=== PATIENT | female | born 1955 | race Caucasian/White ===

== ENCOUNTER 2018-10-15 15:21 | Emergency (ER) | payer MEDICARE ==
[~2018-10-15 15:21] MED LIST: AMITRIPTYLINE H10 M1 PO; AMITRIPTYLINE H75 M1 PO; AMITRIPTYLINE75 MG PO; APRESOLINE 220 MG/ML IV; ASPIRIN 32325 MG/TA1 PO; ASPIRIN 32325 MG/TAB PO; ASPIRIN 81M81 MG/TA2 PO; BACTRIM DS 8001 TAB PO; CATAPRES-TTS 30.3 MG TOP; CELEXA40 MG PO; CIPRO 500MG TA500 MG PO; COLACE 100100 MG/CAP PO; COUMADIN 5MG5 MG/TAB PO; COUMADIN 6MG6 MG/TAB PO; COUMADIN 77.5 MG/TAB PO; COUMADIN4 MG PO; KEPPRA SUSP100 MG/ML PEG; LEVEMIR100 U/ML SQ; LIPITOR20 MG PEG; LIPITOR20 MG PO; LODINE300 MG PO; LOVENOX 4040 MG/0.4 SQ; MIRALAX PA17 GM/Dose PO; NITRO-BID22 TOP; NORCO 325 MG-51 TAB; NORCO 325 MG-51 TAB PO; NORCO 325 MG-7.1 TAB PO; NORVASC 10MG10 MG PO; NOVOLOG 100U100 U/M1; NOVOLOG 100U100 U/M1 SC; NOVOLOG 100U100 U/M1 SQ; NS INT FLUSH 1010 ML IV; PEPCID 20MG TAB20 MG PEG; PHENERGAN25 MG/ML IV; PRINIVIL5 MG PO; SENNA-S 50 MG-81 TAB PO; TYLENOL 500MG500 MG PO; TYLENOL ELIX32 MG/M2 PEG; ULTRAM 50MG TAB50 MG; ULTRAM 50MG TAB50 MG PO; ZOFRAN INJ4 MG/2 ML IV; ZOLOFT 100MG100 MG; ZYPREXA 5MG5 MG PEG; [UNRECOGNIZED DRUG - CODE] IV
[2018-10-15 15:24] VITALS: TEMP 98.2
[2018-10-15 16:19] LABS: BASO # 0.1 (0.0-0.2); BASO % 0.6 % (0.0-2.0); EOS # 0.2 (0.0-0.7); EOS % 1.9 % (0-4.0); GRAN # 5.8 (1.4-6.5); GRAN % 59.9 % (42.2-75.2); HEMATOCRIT 38.1 % (37.0-47.0); LYMPH % 30.9 % (20.0-51.0); MEAN CELL VOLUME 82 fl (80.0-100.0); MEAN CORPUSCULAR HEMOGLOBIN 28 pg (27.0-31.0); MEAN CORPUSCULAR HGB CONC 34 g/dl (33.0-37.0); MEAN PLATELET VOLUME 9.3 fl (7.4-10.4); MONO # 0.6 (0.1-0.6); MONO % 6.4 % (1.7-9.3); PLATELET COUNT 244 K/mm3 (130-400); RED BLOOD COUNT 4.64 M/mm3 (4.10-5.30); REDCELL DISTRIBUTION WIDTH-CV 13.1 % (11.5-14.5)
[2018-10-15 16:23] LABS: INR 2.6 (0.8-3.0); PROTHROMBIN TIME 29.8 SECONDS (9.7-12.8)
[2018-10-15 16:28] LABS: CREATININE, serum 0.88 mg/dL (0.52-1.25); POTASSIUM 3.2 mmol/L (3.4-5.0)
[2018-10-15 17:42] VITALS: BP 126/71; PULSE 64
== END 2018-10-15 17:43 | disposition home or self-care (01) ==
LOC: COL.ER 15:21
PROVIDERS: Emergency Medicine
DX: S00.93XA Contusion of unspecified part of head, initial encounter (principal); S80.02XA Contusion of left knee, initial encounter; E87.6 Hypokalemia; I10 Essential (primary) hypertension; E11.9 Type 2 diabetes mellitus without complications; Z86.73 Personal history of transient ischemic attack (TIA), and cerebral infarction without residual deficits; Z79.4 Long term (current) use of insulin; Z79.82 Long term (current) use of aspirin; Z79.01 Long term (current) use of anticoagulants; W05.0XXA Fall from non-moving wheelchair, initial encounter; Y92.129 Unspecified place in nursing home as the place of occurrence of the external cause